=== PATIENT | female | born 1970 | race Caucasian/White ===

== ENCOUNTER → 2018-12-11 | Outpatient (CLI) | payer OTHER ==
[~2018-12-11] MED LIST: DIATRIZOATE MEGL/DIATRIZOA SOD 30 ML BTL PO ONE; IOPAMIDOL 370 MG/ML 200 ML INFUS..BTL INJ ONE; SODIUM CHLORIDE 0.9% 50ML 50 ML ONE
--- NOTE | 2018-12-11 17:37 | Diagnostic Imaging Report ---
CT of the abdomen and pelvis, with contrast, 12/11/2018. History: Pelvic mass. Comparison: None available. Technique: Multidetector CT scanning of the abdomen and pelvis was performed from the level of the lung bases to the inferior pubic rami after intravenous and oral administration of contrast. Coronal and sagittal multiplanar reformations were obtained. RADIATION DOSE: Total DLP: 320 mGy*cm Dose modulation, iterative reconstruction, and/or weight based adjustment of the mA/kV was utilized to reduce the radiation dose to as low as reasonably achievable. Discussion: LUNG BASES: No visualized abnormalities. ABDOMEN: The liver, gallbladder, biliary tree, spleen, pancreas, adrenal glands, and kidneys are normal. The hepatic vein, portal vein, and splenic vein are patent. The abdominal aorta is within normal limits for size. The stomach, small bowel, and large bowel are unremarkable. There is no evidence of adenopathy or free fluid. PELVIS: A 7.2 x 5.7 cm left uterine intramural mass with peripheral coarse calcification is present. Adjacent endometrial cavity appears normal. The bladder and adnexa are unremarkable. There is no evidence of free fluid or adenopathy. BONES AND SOFT TISSUES: Degenerative changes are present throughout the lumbar spine without evidence of lytic or sclerotic lesion. IMPRESSION: Findings consistent with a large calcified left uterine fibroid. Ovaries are not well evaluated on CT. Findings may be confirmed with pelvic ultrasound. Otherwise unremarkable CT of the abdomen and pelvis. Signed by: Antonio Friedman on 12/11/2018 5:34 PM
== END ==
LOC: CT 15:08
PROVIDERS: ATTEND Family Medicine
DX: R22.9 Localized swelling, mass and lump, unspecified (principal)
CPT/HCPCS: 74177; Q9967

== ENCOUNTER 2019-10-13 18:17 | Emergency (ER) | payer OTHER ==
[~2019-10-13] VITALS: Ht 170.2 cm; Wt 65.8 kg
[2019-10-13] MEDS ORDERED: DIATRIZOATE MEGL/DIATRIZOA SOD 30 ML BTL PO ONE (18:47)
--- NOTE | 2019-10-13 18:54 | Emergency Department Note ---
History of Present Illnes History of Present Illness Chief Complaint: Abdominal Complaints History of Present Illness This is a 49 year old female constant non radiating suprapubic pain 6/ denies n/v took zofran [employer] denies dysuria states she's actually been dealing with pain for 6 months but worse pain not increased with eating states she has fibroids in LLQ. pt also reports diarrhea times 4 episodes today . Historian: Patient Arrival Mode: Car Onset (how long ago): hour(s) (8) Location: llq and lower abd Quality: pain Radiation: Reports non-radiation Severity: moderate Onset quality: gradual Duration (how long): hour(s) (6) Progression: waxing and waning Chronicity: recurrent (pt has had llq pain for about 6 months but now is worse and having diarrhea, has h/o uterin fibroids) Relieving factors: none Exacerbating factors: other (eating) Associated symptoms: Reports denies other symptoms Treatments prior to arrival: none Past Medical/Family History Physician Review I have reviewed the patient's past medical and family history. Any updates have been documented here. Past Medical History Recent Fever: No Clinical Suspicion of Infectio: No New/Unexplained Change in Ment: No Past Medical History: Seizure Disorder Other Medical History: epilepsy Past Surgical History: Appendectomy, Other Surgery: shoulder sx Social History Smoking Cessation: Never Smoker Alcohol Use: None Any Illegal Drug Use: No Physically hurt or threatened: No Family History Family history of heart diseas: No Review of Systems Review of Systems Constitutional: Reports no symptoms EENTM: Reports no symptoms Cardiovascular: Reports no symptoms Respiratory: Reports no symptoms Gastrointestinal: Reports as per HPI Genitourinary: Reports no symptoms Musculoskeletal: Reports no symptoms Integumentary: Reports no symptoms Neurological: Reports no symptoms Psychological: Reports no symptoms Endocrine: Reports no symptoms Hematological/Lymphatic: Reports no symptoms Physical Exam Related Data Allergies: Coded Allergies: phenytoin (Verified Allergy, Unknown, 10/13/19) Triage Vital Signs Vital Signs Date Time Temp Pulse Resp B/P (MAP) Pulse Ox O2 Delivery O2 Flow Rate FiO2 10/13/19 18:24 98.6 73 18 140/81 100 Room Air Vital signs reviewed: Yes Physical Exam CONSTITUTIONAL Constitutional: Present well-developed, Present well-nourished; Absent distressed HENT HENT: Present normocephalic, Present atraumatic, Present oropharynx clear/moist, Present nose normal HENT L/R: Present left ext ear normal, Present right ext ear normal EYES Eyes: Reports PERRL, Reports conjunctivae normal NECK Neck: Present ROM normal PULMONARY Pulmonary: Present effort normal, Present breath sounds normal CARDIOVASCULAR Cardiovascular: Present regular rhythm, Present heart sounds normal, Present capillary refill normal, Present normal rate GASTROINTESTINAL Abdominal: Present soft, Present bowel sounds normal, Present tender (moderate tenderness to suprapubic and llq area) GENITOURINARY Genitourinary: Present exam deferred SKIN Skin: Present warm, Present dry MUSCULOSKELETAL Musculoskeletal: Present ROM normal NEUROLOGICAL Neurological: Present alert, Present oriented x 3, Present no gross motor or sensory deficits PSYCHOLOGICAL Psychological: Present mood/affect normal, Present judgement normal Results Laboratory Laboratory Laboratory Tests Test 10/13/19 18:34 White Blood Count 6.31 x10e3/uL (4.8-10.8) Red Blood Count 4.37 x10e6/uL (3.6-5.1) Hemoglobin 12.5 g/dL (12.0-16.0) Hematocrit 38.4 % (34.2-44.1) Mean Corpuscular Volume 87.9 fL (81-99) Mean Corpuscular Hemoglobin 28.6 pg (28-32) Mean Corpuscular Hemoglobin Concent 32.6 g/dL (31-35) Red Cell Distribution Width 12.3 % (11.7-14.4) Platelet Count 245 x10e3/uL (140-360) Neutrophils (%) (Auto) 65.9 % (38.7-80.0) Lymphocytes (%) (Auto) 26.6 % (18.0-39.1) Monocytes (%) (Auto) 6.7 % (4.4-11.3) Eosinophils (%) (Auto) 0.3 % (0.0-6.0) Basophils (%) (Auto) 0.3 % (0.0-1.0) Neutrophils # (Auto) 4.2 (2.1-6.9) Lymphocytes # (Auto) 1.7 (1.0-3.2) Monocytes # (Auto) 0.4 (0.2-0.8) Eosinophils # (Auto) 0.0 (0.0-0.4) Basophils # (Auto) 0.0 (0.0-0.1) Absolute Immature Granulocyte (auto 0.01 x10e3/uL (0-0.1) Urine Color Yellow (YELLOW) Urine Clarity Hazy (CLEAR) Urine pH 7 (5 - 7) Urine Specific [place] 1.020 (1.010-1.025) Urine Protein Negative (NEGATIVE) Urine Glucose (UA) Negative (NEGATIVE) Urine Ketones Negative (NEGATIVE) Urine Blood Trace (NEGATIVE) Urine Nitrite Negative (NEGATIVE) Urine Bilirubin Negative (NEGATIVE) Urine Urobilinogen 0.2 mg/dL (0.2 - 1) Urine Leukocyte Esterase Negative (NEGATIVE) Urine RBC 0-5 /HPF (0-5) Urine WBC 0-5 /HPF (0-5) Urine Epithelial Cells Moderate /LPF (NONE) Urine Bacteria Many /HPF (NONE) Urine Test Negative (NEGATIVE) Sodium Level 139 mmol/L (136-145) Potassium Level 4.4 mmol/L (3.5-5.1) Chloride Level 104 mmol/L (98-107) Carbon Dioxide Level 26 mmol/L (22-29) Anion Gap 13.4 mmol/L (8-16) Blood Urea Nitrogen 12 mg/dL (7-26) Creatinine 0.83 mg/dL (0.57-1.11) Estimat Glomerular Filtration Rate > 60 ML/MIN (60-) BUN/Creatinine Ratio 14 (6-25) Glucose Level 83 mg/dL (74-118) Calcium Level 9.1 mg/dL (8.4-10.2) Total Bilirubin 0.3 mg/dL (0.2-1.2) Aspartate Amino Transf (AST/SGOT) 24 IU/L (5-34) Alanine Aminotransferase (ALT/SGPT) 19 IU/L (0-55) Alkaline Phosphatase 86 IU/L (40-150) Total Protein 6.9 g/dL (6.5-8.1) Albumin 4.1 g/dL (3.5-5.0) Globulin 2.8 g/dL (2.3-3.5) Albumin/Globulin Ratio 1.5 (0.8-2.0) Amylase Level 68 U/L (25-125) Lipase 8 U/L (8-78) Lab results reviewed: Yes Imaging Imaging results reviewed: Yes Impressions EXAM: CT Abdomen and Pelvis WITH contrast INDICATION: Left lower quadrant pain COMPARISON: CT abdomen and pelvis on 12/11/2018. TECHNIQUE: Abdomen and pelvis were scanned utilizing a multidetector helical scanner from the lung base to the pubic symphysis after administration of IV contrast. Coronal and sagittal reformations were obtained. Routine protocol was performed. Scan was performed when during portal venous phase. IV CONTRAST: 100 mL of Isovue 370 ORAL CONTRAST: CT abdomen and pelvis on 12/11/2018 COMPLICATIONS: None RADIATION DOSE: Total DLP: 442 mGy*cm Estimated effective dose: (DLP x 0.015 x size factor) mSv CTDIvol has been reviewed. It is below the limits set by the Radiation Protocol Committee (RPC). Dose modulation, iterative reconstruction, and/or weight based adjustment of the mA/kV was utilized to reduce the radiation dose to as low as reasonably achievable. FINDINGS: LINES and TUBES: None. LOWER THORAX: Unremarkable HEPATOBILIARY: No focal hepatic lesions. No biliary ductal dilation. GALLBLADDER: No radio-opaque stones or sludge. No wall thickening. SPLEEN: No splenomegaly. PANCREAS: No focal masses or ductal dilatation. ADRENALS: No adrenal nodules KIDNEYS/URETERS: Kidneys enhance symmetrically. No hydronephrosis. No cystic or solid mass lesions. No stones. The right proximal ureter is prominent, however this is unchanged and likely within normal limits. GI TRACT: No abnormal distention, wall thickening, or evidence of bowel obstruction. Appendix is normal. PELVIC ORGANS/BLADDER: There is redemonstration of a 7.1 x 5.7 left uterine intramural mass with peripheral coarse calcification, not significantly changed from prior examination. The adjacent endometrial cavity appears normal with mass effect. The bladder and adnexa are otherwise normal. No evidence of fluid or adenopathy. LYMPH NODES: No lymphadenopathy. VESSELS: Unremarkable. PERITONEUM / RETROPERITONEUM: No free air or fluid. BONES: Unremarkable. SOFT TISSUES: Unremarkable. IMPRESSION: 1. No acute intra-abdominal findings to explain the patient's symptoms were identified. 2. Redemonstration of calcified left uterine fibroid, unchanged. The ovaries are not well evaluated by imaging modality. Signed by: Valery Do MD on 10/13/2019 8:38 PM Dictated By: VALERY DO MD 37 Transcribed By: GALE on 10/13/192037 COPY TO: MANOJ GEIGER MD~ Procedure: [id number] US/US PELVIS COMPLETE NON OB Exam Date: 10/13/19 Exam Time: 2212 REPORT STATUS: Signed EXAM: Transabdominal and Transvaginal Pelvic Ultrasound INDICATION: Left lower quadrant pain COMPARISON: Abdominal CT 10/13/2019 TECHNIQUE: Grayscale transverse and sagittal transabdominal and transvaginal images were obtained of the pelvis. Transvaginal imaging was medically necessary to better evaluate the endometrium and the adnexa. CLINICAL HISTORY: 49 year old ; last menstrual period: 10/04/2019. FINDINGS: Uterus Orientation: Normal Size: 9.3 x 6.5 x 7.7 cm, Normal Mass: 5.6 cm calcified fibroid Cervix: Normal Endometrium: Thickness: 1.1 cm, Normal. Appearance: Homogeneous echotexture without focal thickening. Ovaries not seen. Adnexa: Normal Cul-de-sac: No free fluid IMPRESSION: Ovaries not visualized. A 5.6 cm calcified degenerative fibroid. Signed by: Lalo Matute DO on 10/13/2019 11:31 PM Dictated By: LALO MATUTE DO 30 Transcribed By: GALE on 10/13/192330 COPY TO: MANOJ GEIGER MD~ Assessment & Plan Medical Decision Making MDM pt with llq and suprapubic pain with diarrhea cbc, cmp, amylase, lipase, ua, preg test, ct abd/pelvis ordered to eval for uti, hematuria, kidney stone, diverticulitis, pancreatitis, colitis, Assessment & Plan Final Impression: (1) Uterine fibroid (2) Abdominal pain Depart Disposition: HOME, SELF-CARE Last Vital Signs Date Time Temp Pulse Resp B/P (MAP) Pulse Ox O2 Delivery O2 Flow Rate FiO2 10/13/19 18:24 98.6 73 18 140/81 100 Room Air Home Meds Reported Medications Meloxicam (MELOXICAM) 15 Mg Tablet, 15 MG 10/13/19 Levetiracetam (LEVETIRACETAM) 500 Mg Tablet, 500 MG 10/13/19 Lamotrigine (LAMOTRIGINE) 100 Mg Tablet, 100 MG 10/13/19 Medications in the ED Diatrizoate Meglum/ Diatrizoate Sod 30 ml STK-MED ONCE PO ; Start 10/13/19 at 18:47; Stop 10/13/19 at 18:42; Status DC MANOJ GEIGER MD Oct 13, 2019 18:54
[2019-10-13 19:12] LABS: BILIRUBIN,URINE NEGATIVE (NEGATIVE); CLARITY,URINE HAZY (CLEAR); COLOR,URINE YELLOW (YELLOW); KETONES,URINE NEGATIVE (NEGATIVE); LEUKOCYTE ESTERASE ,URINE NEGATIVE (NEGATIVE); NITRITE,URINE NEGATIVE (NEGATIVE); PROTEIN,URINE DIPSTICK NEGATIVE (NEGATIVE); URINE UROBILINOGEN 0.2 mg/dL (0.2 - 1)
[2019-10-13 19:13] LABS: PREGNANCY TEST, URINE NEGATIVE (NEGATIVE)
[2019-10-13 19:22] LABS: BASOPHILS % 0.3 % (0.0-1.0); EOSINOPHILS % 0.3 % (0.0-6.0); HEMATOCRIT 38.4 % (34.2-44.1); HEMOGLOBIN 12.5 g/dL (12.0-16.0); LYMPHOCYTES # (AUTO) 1.7 (1.0-3.2); LYMPHOCYTES % 26.6 % (18.0-39.1); MEAN CORPUSCULAR HEMOGLOBIN 28.6 pg (28-32); MEAN CORPUSCULAR HGB CONC 32.6 g/dL (31-35); MEAN CORPUSCULAR VOLUME 87.9 fL (81-99); MONOCYTES # (AUTO) 0.4 (0.2-0.8); MONOCYTES % 6.7 % (4.4-11.3); NEUTROPHILS # (AUTO) 4.2 (2.1-6.9); NEUTROPHILS % 65.9 % (38.7-80.0); PLATELET COUNT 245 x10e3/uL (140-360); RED BLOOD COUNT 4.37 x10e6/uL (3.6-5.1); RED CELL DISTRIBUTION WIDTH 12.3 % (11.7-14.4)
[2019-10-13 19:23] LABS: BACTERIA,URINE MANY /HPF; EPITHELIAL CELLS,URINE MODERATE /LPF; RBC,URINE 0-5 /HPF (0-5); WBC,URINE (MAN) 0-5 /HPF (0-5)
[2019-10-13 19:34] LABS: ALANINE AMINOTRANSFERASE 19 IU/L (0-55); ALBUMIN 4.1 g/dL (3.5-5.0); ALBUMIN/GLOBULIN RATIO 1.5 (0.8-2.0); ALKALINE PHOSPHATASE 86 IU/L (40-150); ANION GAP 13.4 mmol/L (8-16); BLOOD UREA NITROGEN 12 mg/dL (7-26); BUN/CREATININE RATIO 14 (6-25); CALCIUM 9.1 mg/dL (8.4-10.2); CARBON DIOXIDE 26 mmol/L (22-29); CHLORIDE 104 mmol/L (98-107); CREATININE, SERUM 0.83 mg/dL (0.57-1.11); EST GLOMERULAR FILTRATION RATE > 60 ML/MIN (60-); GLUCOSE 83 mg/dL (74-118); POTASSIUM 4.4 mmol/L (3.5-5.1); SODIUM 139 mmol/L (136-145)
[2019-10-13 19:45] LABS: AMYLASE 68 U/L (25-125); LIPASE 8 U/L (8-78)
[2019-10-13] MEDS ORDERED: IOPAMIDOL 370 MG/ML 200 ML INFUS..BTL INJ ONE (19:58)
[2019-10-13] MEDS ORDERED: SODIUM CHLORIDE 0.9% 50ML 50 ML ONE (19:58)
--- NOTE | 2019-10-13 20:41 | Diagnostic Imaging Report ---
EXAM: CT Abdomen and Pelvis WITH contrast INDICATION: Left lower quadrant pain COMPARISON: CT abdomen and pelvis on 12/11/2018. TECHNIQUE: Abdomen and pelvis were scanned utilizing a multidetector helical scanner from the lung base to the pubic symphysis after administration of IV contrast. Coronal and sagittal reformations were obtained. Routine protocol was performed. Scan was performed when during portal venous phase. IV CONTRAST: 100 mL of Isovue 370 ORAL CONTRAST: CT abdomen and pelvis on 12/11/2018 COMPLICATIONS: None RADIATION DOSE: Total DLP: 442 mGy*cm Estimated effective dose: (DLP x 0.015 x size factor) mSv CTDIvol has been reviewed. It is below the limits set by the Radiation Protocol Committee (RPC). Dose modulation, iterative reconstruction, and/or weight based adjustment of the mA/kV was utilized to reduce the radiation dose to as low as reasonably achievable. FINDINGS: LINES and TUBES: None. LOWER THORAX: Unremarkable HEPATOBILIARY: No focal hepatic lesions. No biliary ductal dilation. GALLBLADDER: No radio-opaque stones or sludge. No wall thickening. SPLEEN: No splenomegaly. PANCREAS: No focal masses or ductal dilatation. ADRENALS: No adrenal nodules KIDNEYS/URETERS: Kidneys enhance symmetrically. No hydronephrosis. No cystic or solid mass lesions. No stones. The right proximal ureter is prominent, however this is unchanged and likely within normal limits. GI TRACT: No abnormal distention, wall thickening, or evidence of bowel obstruction. Appendix is normal. PELVIC ORGANS/BLADDER: There is redemonstration of a 7.1 x 5.7 left uterine intramural mass with peripheral coarse calcification, not significantly changed from prior examination. The adjacent endometrial cavity appears normal with mass effect. The bladder and adnexa are otherwise normal. No evidence of fluid or adenopathy. LYMPH NODES: No lymphadenopathy. VESSELS: Unremarkable. PERITONEUM / RETROPERITONEUM: No free air or fluid. BONES: Unremarkable. SOFT TISSUES: Unremarkable. IMPRESSION: 1. No acute intra-abdominal findings to explain the patient's symptoms were identified. 2. Redemonstration of calcified left uterine fibroid, unchanged. The ovaries are not well evaluated by imaging modality. Signed by: Wilda Fernandez MD on 10/13/2019 8:38 PM
[2019-10-13] MEDS ORDERED: LEVETIRACETAM500 MG (21:49)
[2019-10-13] MEDS ORDERED: LAMOTRIGINE100 MG (21:49)
[2019-10-13] MEDS ORDERED: MELOXICAM15 MG (21:49)
--- NOTE | 2019-10-13 22:44 | NUR ---
REPORTED OFF TO JOSE OTTO LVN FOR CONTINUTITY
--- NOTE | 2019-10-13 23:34 | Diagnostic Imaging Report ---
EXAM: Transabdominal and Transvaginal Pelvic Ultrasound INDICATION: Left lower quadrant pain COMPARISON: Abdominal CT 10/13/2019 TECHNIQUE: Grayscale transverse and sagittal transabdominal and transvaginal images were obtained of the pelvis. Transvaginal imaging was medically necessary to better evaluate the endometrium and the adnexa. CLINICAL HISTORY: 49 year old ; last menstrual period: 10/04/2019. FINDINGS: Uterus Orientation: Normal Size: 9.3 x 6.5 x 7.7 cm, Normal Mass: 5.6 cm calcified fibroid Cervix: Normal Endometrium: Thickness: 1.1 cm, Normal. Appearance: Homogeneous echotexture without focal thickening. Ovaries not seen. Adnexa: Normal Cul-de-sac: No free fluid IMPRESSION: Ovaries not visualized. A 5.6 cm calcified degenerative fibroid. Signed by: Lalo Matute DO on 10/13/2019 11:31 PM
[2019-10-14 00:09] VITALS: BP 120/87
--- OUTSIDE RECORDS SUMMARY | 2019-10-15 20:22 | XMS REPORT | Continuity of Care Document ---
Author Author [facility] t Organization [facility] Address [address] [place] [address] Phone Unavailable Care Team Providers Care Automobile Locator Name Role Phone NONSTAFF PCP Unavailable Joanne GEIGER Attphys Unavailable NIEVES GONZALEZ Attjonathan Unavailable Payers Payer Name Policy Type Policy Number Effective Date Expiration Date Aristides Sagastume [facility] [id number] 2016 00:00:00 [facility] Problems Condition Name Condition Details Condition Category Status Onset Date Resolution Date Last Treatment Date Treating Clinician Comments Source Uterine leiomyoma Problem Active [facility] Abdominal pain Problem Active [facility] Allergies, Adverse Reactions, Alerts Allergy Name Allergy Type Status Severity Reaction(s) Onset Date Inacti ve Date Treating Clinician Comments Source Phenytoin Allergy to substance Active 2019-10-13 00:00:00 [facility] Social History Social Habit Start Date Stop Date Quantity Comments Source Sex Assigned At 1970 00:00:00 1970 00:00:00 Female [facility] Medications Ordered Medication Name Filled Medication Name Start Date Stop Da te Current Medication? Ordering Clinician Indication Dosage Frequency Signature (SIG) Comments Components Source Lamotrigine Lamotrigine Yes 100 [facility] Levetiracetam Levetiracetam Yes 500 [facility] Meloxicam Meloxicam Yes 15 [facility] Vital Signs Vital Name Observation Time Observation Value Comments Source Body Temperature 2019-10-14 00:09:00 98.5 [degF] [facility] Weight 2019-10-13 18:24:00 145 [lb_av] [facility] BMI (Body Mass Index) 2019-10-13 18:24:00 22.7 kg/m2 [facility] Procedures Procedure Date / Time Performed Performing Clinician Jossy gibson Computed tomography of abdomen and pelvis with contrast 00:00:00 [facility] Complete non-obstetrical ultrasound of pelvis 2019-10-13 00:00:0 0 [facility] US transvaginal 2019-10-13 00:00:00 [facility] Plan of Care Planned Activity Planned Date Details Comments Source Instructions Fibroids [facility] Encounters Start Date/Time End Date/Time Encounter Type Admission Type Attendi [facility] Care Department Encounter ID Source 2019-10-13 18:39:00 2019-10-14 00:25:00 Departed Emergency Room 1 MANOJ GEIGER [facility] [id number] I [facility] Results Test Description Test Time Test Comments Results Result Comments Source US PELVIS COMPLETE NON OB 2019-10-13 23:23:00 [place] [address] Patient Name: MARELY SERRANO MR #: [id number] : 1970 Age/Sex: 49/F Req #: [id number] Adm Physician: Ordered by: MANOJ GEIGER MD Report #: [id number] Location: ER Room/Bed: Procedure: [id number] US/US PELVIS COMPLETE NON OB Exam Date: 10/13/19 Exam Time: 2212 REPORT STATUS: Signed EXAM: Transabdominal and Transvaginal Pelvic Ultrasound INDICATION: Left lower quadrant pain COMPARISON: Abdominal CT 10/13/2019 TECHNIQUE: Grayscale transverse and sagittal transabdominal and transvaginal images were obtained of the pelvis. Transvaginal imaging was medically necessary to better evaluate the endometrium and the adnexa. CLINICAL HISTORY: 49 year old ; last menstrual period: 10/04/2019. FINDINGS: Uterus Orientation: Normal Size: 9.3 x 6.5 x 7.7 cm, Normal Mass: 5.6 cm calcified fibroid Cervix: Normal Endometrium: Thickness: 1.1 cm, Normal. Appearance: Homogeneous echotexture without focal thickening. Ovaries not seen. Adnexa: Normal Cul-de-sac: No free fluid IMPRESSION: Ovaries not visualized. A 5.6 cm calcified degenerative fibroid. Signed by: Lalo Matute DO on 10/13/2019 11:31 PM Dictated By: LALO MATUTE DO 30 Transcribed By: GALE on 10/13/192330 COPY TO: MANOJ GEIGER MD CT ABDOMEN/PELVIS W 2019-10-13 20:19:00 [place] [address] Patient Name: MARELY SERRANO MR #: [id number] : 1970 Age/Sex: 49/F Req #: [id number] Adm Physician: Ordered by: MANOJ GEIGER MD Report #: [id number] Location: ER Room/Bed: Procedure: [id number] CT/CT ABDOMEN/PELVIS W Exam Date: 10/13/19 Exam Time: 1999 REPORT STATUS: Signed EXAM: CT Abdomen and Pelvis WITH contrast INDICATION: Left lower quadrant pain COMPARISON: CT abdomen and pelvis on 12/11/2018. TECHNIQUE: Abdomen and pelvis were scanned utilizing a multidetector helical scanner from the lung base to the pubic symphysis after administration of IV contrast. Coronal and sagittal reformations were obtained. Routine protocol was performed. Scan was performed when during portal venous phase. IV CONTRAST: 100 mL of Isovue 370 ORAL CONTRAST: CT abdomen and pelvis on 12/11/2018 COMPLICATIONS: None RADIATION DOSE: Total DLP: 442 mGy*cm Estimated effective dose: (DLP x 0.015 x size factor) mSv CTDIvol has been reviewed. It is below the limits set by the Radiation Protocol Committee (RPC). Dose modulation, iterative reconstruction, and/or weight based a djustment of the mA/kV was utilized to reduce the radiation dose to as low as reasonably achievable. FINDINGS: LINES and TUBES: None. LOWER THORAX: Unremarkable HEPATOBILIARY: No focal hepatic lesions. No biliary ductal dilation. GALLBLADDER: No radio-opaque stones or sludge. No wall thickening. SPLEEN: No splenomegaly. PANCREAS: No focal masses or ductal dilatation. ADRENALS: No adrenal nodules KIDNEYS/URETERS: Kidneys enhance symmetrically. No hydronephrosis. No cystic or solid mass lesions. No stones. The right proximal ureter is prominent, however this is unchanged and likely within normal limits. GI TRACT: No abnormal distention, wall thickening, or evidence of bowel obstruction. Appendix is normal. PELVIC ORGANS/BLADDER: There is redemonstration of a 7.1 x 5.7 left uterine intramural mass with peripheral coarse calcification, not significantly changed from prior examination. The adjacent endometrial cavity appears normal with mass effect. The bladder and adnexa are otherwise normal. No evidence of fluid or adenopathy. LYMPH NODES: No lymphadenopathy. VESSELS: Unremarkable. PERITONEUM / RETROPERITONEUM: No free air or fluid. BONES: Unremarkable. SOFT TISSUES: Unremarkable. IMPRESSION: 1. No acute intra-abdominal findings to explain the patient's symptoms were identified. 2. Redemonstration of calcified left uterine fibroid, unchanged. The ovaries are not well evaluated by imaging modality. Signed by: Valery Do MD on 10/13/2019 8:38 PM Dictated By: VALERY DO MD 37 Transcribed By: GALE on 10/13/192037 COPY TO: MANOJ GEIGER MD Blood leukocytes automated count (number/volume) 2019-10-13 18:34:00 Test Item White Blood Count (test code = 6690-2) 6.31 4.8-10.8 [facility] automated count (number/volume)2019-10-13 18:34:00* Test Item Value Reference Range Interpretation Comments Red Blood Count (test code = 789-8) 4.37 3.6-5.1 [facility] hemoglobin measurement (moles/volume)2019-10-13 18:34:00* Test Item Value Reference Range Interpretation Comments Hemoglobin (test code = 69119-2) 12.5 12.0-16.0 [facility] CenterAutomated blood hematocrit (volume fraction)2019-10-13 18:34:00* Test Item Value Reference Range Interpretation Comments Hematocrit (test code = 4544-3) 38.4 34.2-44.1 [facility] CenterAutomated erythrocyte mean corpuscular jbaaxl8228-37-52 18:34:00* Test Item Value Reference Range Interpretation Comments Mean Corpuscular Volume (test code = 787-2) 87.9 81-99 [facility] CenterAutomated erythrocyte mean corpuscular hemoglobin (mass per erythrocyte)2019-10-13 18:34:00* Test Item Value Reference Range Interpretation Comments Mean Corpuscular Hemoglobin (test code = 785-6) 28.6 28-32 [facility] CenterAutomated erythrocyte mean corpuscular hemoglobin concentration measurement (mass/volume)2019-10-13 18:34:00* Test Item Value Reference Range Interpretation Comments Mean Corpuscular Hemoglobin Concent (test code = 786-4) 32.6 31-35 [facility] CenterRDW TahDc-Ejt5396-98-29 18:34:00* Test Item Value Reference Range Interpretation Comments Red Cell Distribution Width (test code = 72161-2) 12.3 11.7 -14.4 [facility] CenterAutomated blood platelet count (count/volume)2019-10-13 18:34:00* Test Item Value Reference Range Interpretation Comments Platelet Count (test code = 777-3) 245 140-360 [facility] CenterAutomated blood segmented neutrophil count as percentage of total shjgsrapya4213-67-21 18:34:00* Test Item Value Reference Range Interpretation Comments Neutrophils (%) (Auto) (test code = 85925-9) 65.9 38.7-80.0 [facility] CenterAutomated blood lymphocyte count as percentage ot total pvgvivrlwx9230-46-94 18:34:00* Test Item Value Reference Range Interpretation Comments Lymphocytes (%) (Auto) (test code = 736-9) 26.6 18.0-39.1 [facility] CenterAutomated blood monocyte count as percentage of total aetsarvqwp4352-99-02 18:34:00* Test Item Value Reference Range Interpretation Comments Monocytes (%) (Auto) (test code = 5905-5) 6.7 4.4-11.3 [facility] CenterAutomated blood eosinophil count as percentage of total rzfatgnkwn1253-63-80 18:34:00* Test Item Value Reference Range Interpretation Comments Eosinophils (%) (Auto) (test code = 713-8) 0.3 0.0-6.0 [facility] CenterAutomated blood basophil count as percentage of total loxispzfya1538-33-38 18:34:00* Test Item Value Reference Range Interpretation Comments Basophils (%) (Auto) (test code = 706-2) 0.3 0.0-1.0 [facility] CenterFluoroscopic procedure less than one hour opfcmoid1161-32-01 18:34:00* Test Item Value Reference Range Interpretation Comments IM GRANULOCYTES % (test code = IM GRANULOCYTES %) 0.2 0.0- 1.0 [facility] CenterAutomated blood neutrophil count 2019-10-13 18:34:00* Test Item Value Reference Range Interpretation Comments Neutrophils # (Auto) (test code = 751-8) 4.2 2.1-6.9 [facility] CenterBlood lymphocytes count (number/volume) 2019-10-13 18:34:00* Test Item Value Reference Range Interpretation Comments Lymphocytes # (Auto) (test code = 13237-3) 1.7 1.0-3.2 [facility] CenterBlood monocytes automated count (number/volume)2019-10-13 18:34:00* Test Item Value Reference Range Interpretation Comments Monocytes # (Auto) (test code = 742-7) 0.4 0.2-0.8 [facility] CenterAutomated blood eosinophil count 2019-10-13 18:34:00* Test Item Value Reference Range Interpretation Comments Eosinophils # (Auto) (test code = 711-2) 0.0 0.0-0.4 [facility] CenterAutomated blood basophil count (count/volume)2019-10-13 18:34:00* Test Item Value Reference Range Interpretation Comments Basophils # (Auto) (test code = 704-7) 0.0 0.0-0.1 [facility] CenterFluoroscopic procedure less than one hour sbfefene3902-51-38 18:34:00* Test Item Value Reference Range Interpretation Comments Absolute Immature Granulocyte (auto (chip t code = Absolute Immature Granulocyte (auto) 0.01 0-0.1 [facility] CenterUrine color xirvupidewrns5412-77-78 18:34:00* Test Item Value Reference Range Interpretation Comments Urine Color (test code = 5778-6) YELLOW YELLOW [facility] CenterUrine yfciqwe1343-41-60 18:34:00* Test Item Value Reference Range Interpretation Comments Urine Clarity (test code = 92216-4) HAZY CLEAR [facility] by Test strip 2019-10-13 18:34:00* Test Item Value Reference Range Interpretation Comments Urine Specific [place] (test code = 5811-5) 1.020 1.010-1.02 5 [facility] CenterUrine pH measurement by automated test jygmm5649-09-33 18:34:00* Test Item Value Reference Range Interpretation Comments Urine pH (test code = 97285-1) 7 5-7 [facility] CenterUrine leukocyte esterase detection by irxesewd9870-25-12 18:34:00* Test Item Value Reference Range Interpretation Comments Urine Leukocyte Esterase (test code = 5799-2) NEGATIVE NEGATIVE [facility] CenterUrine nitrite wcxzweloi9418-88-01 18:34:00* Test Item Value Reference Range Interpretation Comments Urine Nitrite (test code = 32060-5) NEGATIVE NEGATIVE [facility] CenterUrine protein measurement by test strip (mass/volume)2019-10-13 18:34:00* Test Item Value Reference Range Interpretation Comments Urine Protein (test code = 5804-0) NEGATIVE NEGATIVE [facility] CenterUrine glucose cgqmgvdtu3313-35-30 18:34:00* Test Item Value Reference Range Interpretation Comments Urine Glucose (UA) (test code = 2349-9) NEGATIVE NEGATIVE [facility] CenterUrine ketones detection by automated test colzy9780-43-45 18:34:00* Test Item Value Reference Range Interpretation Comments Urine Ketones (test code = 86125-4) NEGATIVE NEGATIVE [facility] CenterUrine urobilinogen measurement by test strip (mass/volume)2019-10-13 18:34:00* Test Item Value Reference Range Interpretation Comments Urine Urobilinogen (test code = 02382-7) 0.2 0.2-1 [facility] CenterUrine total bilirubin measurement (mass/volume)2019-10-13 18:34:00* Test Item Value Reference Range Interpretation Comments Urine Bilirubin (test code = 1978-6) NEGATIVE NEGATIVE [facility] CenterUrine erythrocytes cdlgxexju9333-04-71 18:34:00* Test Item Value Reference Range Interpretation Comments Urine Blood (test code = 84877-0) TRACE NEGATIVE [facility] CenterAutomated urine sediment leukocyte count by microscopy (number/high power field)2019-10-13 18:34:00* Test Item Value Reference Range Interpretation Comments Urine WBC (test code = 5821-4) 0-5 0-5 [facility] CenterErythrocytes detection in urine sediment by light efecvpqodw0491-25-56 18:34:00* Test Item Value Reference Range Interpretation Comments Urine RBC (test code = 04279-4) 0-5 0-5 [facility] CenterBacteria detection in urine sediment by light wnqfcvskuz4144-82-39 18:34:00* Test Item Value Reference Range Interpretation Comments Urine Bacteria (test code = 45370-7) MANY NONE [facility] CenterEpithelial cells detection in urine sediment by light uwgeqrlxlb6038-45-71 18:34:00* Test Item Value Reference Range Interpretation Comments Urine Epithelial Cells (test code = 29349-7) MODERATE NONE [facility] CenterUrine human chorionic gonadotropin (hCG) epzsrxyuc9406-33-23 18:34:00* Test Item Value Reference Range Interpretation Comments Urine Test (test code = 2106-3) NEGATIVE NEGATIVE [facility]erum or plasma sodium measurement (moles/volume)2019-10-13 18:34:00* Test Item Value Reference Range Interpretation Comments Sodium Level (test code = 2951-2) 139 136-145 [facility] Hospitalerum or plasma potassium measurement (moles/volume)2019-10-13 18:34:00* Test Item Value Reference Range Interpretation Comments Potassium Level (test code = 2823-3) 4.4 3.5-5.1 [facility] Hospitalerum or plasma chloride measurement (moles/volume)2019-10-13 18:34:00* Test Item Value Reference Range Interpretation Comments Chloride Level (test code = 2075-0) 104 98-107 [facility]erum or plasma carbon dioxide, total measurement (moles/volume)2019-10-13 18:34:00* Test Item Value Reference Range Interpretation Comments Carbon Dioxide Level (test code = 2028-9) 26 22-29 [facility]erum or plasma anion pwd1509-95-37 18:34:00* Test Item Value Reference Range Interpretation Comments Anion Gap (test code = 99692-5) 13.4 8-16 [facility]erum or plasma urea nitrogen measurement (mass/volume)2019-10-13 18:34:00* Test Item Value Reference Range Interpretation Comments Blood Urea Nitrogen (test code = 3094-0) 12 7-26 [facility]erum or plasma creatinine measurement (mass/volume)2019-10-13 18:34:00* Test Item Value Reference Range Interpretation Comments Creatinine (test code = 2160-0) 0.83 0.57-1.11 [facility]erum or plasma urea nitrogen/creatinine mass csfjy3112-86-93 18:34:00* Test Item Value Reference Range Interpretation Comments BUN/Creatinine Ratio (test code = 3097-3) 14 6-25 [facility] CenterEstimated glomerular filtration rate (GFR) xwuznxahlyfpn8872-80-47 18:34:00* Test Item Value Reference Range Interpretation Comments Estimat Glomerular Filtration Rate (test code = 378687562) > 60 >60 Ranges were taken from the National Kidney Disease Education Program and the [facility] Kidney Foundation literature.Reference ranges:60 or greater: Kvdvtn70-15 ( for 3 consecutive months): Chronic kidney disease 15 or less: Kidney failureCedar Park Regional Medical CenterGlucose jggmkiaigfc1477-69-10 18:34:00* Test Item Value Reference Range Interpretation Comments Glucose Level (test code = EOM5568) 83 74-118 [facility]erum or plasma calcium measurement (mass/volume)2019-10-13 18:34:00* Test Item Value Reference Range Interpretation Comments Calcium Level (test code = 70927-2) 9.1 8.4-10.2 [facility] Hospitalerum or plasma total bilirubin measurement (mass/volume)2019-10-13 18:34:00* Test Item Value Reference Range Interpretation Comments Total Bilirubin (test code = 1975-2) 0.3 0.2-1.2 [facility] CenterFluoroscopic procedure less than one hour qtfvinze5012-23-50 18:34:00* Test Item Value Reference Range Interpretation Comments Aspartate Amino Transf (AST/SGOT) (test code = Aspartate Amino Transf (AST/SGOT)) 24 5-34 [facility]erum or plasma alanine aminotransferase measurement (enzymatic activity/volume)2019-10-13 18:34:00* Test Item Value Reference Range Interpretation Comments Alanine Aminotransferase (ALT/SGPT) (test code = 1742-6) 19 0-55 [facility]erum or plasma protein measurement (mass/volume)2019-10-13 18:34:00* Test Item Value Reference Range Interpretation Comments Total Protein (test code = 2885-2) 6.9 6.5-8.1 [facility] Hospitalerum or plasma albumin measurement (mass/volume)2019-10-13 18:34:00* Test Item Value Reference Range Interpretation Comments Albumin (test code = 1751-7) 4.1 3.5-5.0 [facility] CenterPlasma globulin measurement (mass/volume) 2019-10-13 18:34:00* Test Item Value Reference Range Interpretation Comments Globulin (test code = 54135-9) 2.8 2.3-3.5 [facility]erum or plasma albumin/globulin mass rbxwk1741-28-96 18:34:00* Test Item Value Reference Range Interpretation Comments Albumin/Globulin Ratio (test code = 1759-0) 1.5 0.8-2.0 [facility] Hospitalerum or plasma alkaline phosphatase measurement (enzymatic activity/volume)2019-10-13 18:34:00* Test Item Value Reference Range Interpretation Comments Alkaline Phosphatase (test code = 6768-6) 86 40-150 [facility]erum or plasma amylase measurement (enzymatic activity/volume)2019-10-13 18:34:00* Test Item Value Reference Range Interpretation Comments Amylase Level (test code = 1798-8) 68 25-125 [facility]er[facility] or plasma lipase measurement (enzymatic activity/volume)2019-10-13 18:34:00* Test Item Value Reference Range Interpretation Comments Lipase (test code = 3040-3) 8 8-78 [facility] CenterCT [facility]IS [id number] 17:25:00 [facility] [address] [place] [address] Patient Name: MARELY SERRANO MR #: [id number] : 3 Age/Sex: 48/F Req #: [id number] Adm Physician: Ordered by: NIEVES GONZALEZ DO Report #: [id number] Location: [place] Room/Bed: Procedure: [id number] CT/C T ABDOMEN/PELVIS W Exam Date: 12/11/18 Exam Time: 16 40 REPORT STATUS: Signed CT o f the abdomen and pelvis, with contrast, 12/11/2018. History: Pelvic mass. Comparison: None available. Technique: Multidetector CT scanning of the abdomen and pelvis was performed from the level of the lung bases to t he inferior pubic rami after intravenous and oral administration of contrast. Coronal and sagittal multiplanar reformations were obtained. RADIATIO N DOSE: Total DLP: 320 mGy*cm Dose modulation, iterative reconstru ction, and/or weight based adjustment of the mA/kV was utilized to reduce the radiation dose to as low as reasonably achievable. Discussion: LUNG B ASES: No visualized abnormalities. ABDOMEN: The liver, gallbladder, biliary tree, spleen, pancreas, adrenal glands, and kidneys are normal. The hepatic v ein, portal vein, and splenic vein are patent. The abdominal aorta is within normal limits for size. The stomach, small bowel, and large bowel are unremarkable. There is no evidence of adenopathy or free fluid. PELV IS: A 7.2 x 5.7 cm left uterine intramural mass with peripheral coarse calcifi cation is present. Adjacent endometrial cavity appears normal. The bladder and adnexa are unremarkable. There is no evidence of free fluid or adenopathy. BONES AND SOFT TISSUES: Degenerative changes are present throughout the lumb ar spine without evidence of lytic or sclerotic lesion. IMPRESSION: Findings consistent with a large calcified left uterine fibroid. Ovaries are n ot well evaluated on CT. Findings may be confirmed with pelvic ultrasound. Oth erwise unremarkable CT of the abdomen and pelvis. Signed by: Antonio Friedman on 12/11/2018 5:34 PM Dictated By: ANTONIO FRIEDMAN MD [id number] Transcribed By: GALE on 12/11/181733 COPY TO: NIEVES GONZALEZ DO
== END 2019-10-14 00:25 | disposition home or self-care (01) ==
LOC: ER 18:39
DX: R10.32 Left lower quadrant pain (principal); D25.9 Leiomyoma of uterus, unspecified; R19.7 Diarrhea, unspecified; G40.909 Epilepsy, unspecified, not intractable, without status epilepticus
CPT/HCPCS: 36415; 74177; 76830; 76856; 80053; 81001; 81025; 82150; 83690; 85025; 99284; Q9967